=== PATIENT | male | born 1985 | race Caucasian/White ===

== ENCOUNTER 2021-03-08 05:30 | Emergency (ER) | payer SELFPAY ==
[~2021-03-08] VITALS: Ht 170.2 cm; Wt 68.0 kg
[2021-03-08] MEDS ORDERED: ONDANSETRON HCL INJ 2MG/ML 2ML 2 MG/ML VIAL IV STA (05:35)
[2021-03-08] MEDS ORDERED: CASIRIVIMAB/IMDEVIMAB 10 ML in SODIUM CHLORIDE 0.9% 100 ML IV ONE (05:45)
[2021-03-08] MEDS ORDERED: ONDANSETRON HCL INJ 2MG/ML 2ML 2 MG/ML VIAL ONE (05:46)
[2021-03-08] MEDS ORDERED: SODIUM CHLORIDE 0.9% 100 ML ONE (05:46)
== END 2021-03-08 06:33 | disposition home or self-care (01) ==
LOC: ER 05:37
DX: U07.1 COVID-19 (principal)
CPT/HCPCS: 99283; J2405; J7050